=== PATIENT | female | born 2000 | race African-American/Black ===

== ENCOUNTER 2018-09-02 12:52 | Emergency (ER) | payer SELFPAY ==
[~2018-09-02] VITALS: Ht 180.3 cm; Wt 76.0 kg
[2018-09-02 12:55] VITALS: BP 97/55
== END 2018-09-02 21:39 | disposition left against medical advice (07) ==
LOC: ER 12:52
DX: Z53.21 Procedure and treatment not carried out due to patient leaving prior to being seen by health care provider (principal)